=== PATIENT | female | born 1990 | race Caucasian/White ===

== ENCOUNTER 2025-04-13 10:48 | Outpatient (REF) | payer MEDICAID, SELFPAY ==
--- OUTSIDE RECORDS SUMMARY | 2025-04-13 11:33 | XMS_ITS ---
Author Organization [employer] [facility] Address [address] [facility] 7t [place] [address] Care Team Providers Care Senior Actuarial Analyst Name Role Phone Tania Fragoso MD Primary Care Provider [phone] Cindy Kim Unavailable [phone] Matthew Cevallos Unavailable C3 CM High Risk Maternity Status:Enrolled (Active) Start date:02/21/2025 Enrollment date:03/06/2025 Enrollment reason:ADT Feed Overview ADT HRM- Pt admitted to [facility] on 02/20/25. Case Team Name Relationship Phone Cindy Kim(Responsible Staff) Registered Nurse [phone] Continued Care and Services Coordination
[2025-04-13 12:25] LABS: MANUAL DIFF FLAG NO
[2025-04-13 12:28] LABS: Hematocrit 41.8 % (37.0-47.0); Hemoglobin 13.7 g/dl (12.0-16.0); Imm Gran Abs Auto 0.03 X10*3/uL (0.00-0.03); Imm Gran Pct Auto 0.5 % (0.0-0.4); Lymphocytes Absolute Auto 2.9 X10*3/uL (1.2-4.9); Mean Corpuscular HGB Conc 32.8 g/dl (31.0-35.0); Mean Corpuscular Hemoglobin 27.3 pg (27.0-33.0); Mean Corpuscular Volume 83.3 fL (80.0-98.0); NRBC Abs Auto 0.000 X10*3/uL (0.0-0.012); NRBC Pct Auto 0.0 /100WBC (0.0-0.2); Platelet Count 288 X10*3/uL (160-400); Red Blood Count 5.02 X10*6/uL (4.20-5.50); White Blood Count 6.7 X10*3/uL (4.8-10.8)
[2025-04-13 12:48] LABS: Alanine Aminotransferase 86 U/L (0-31); Albumin Level 4.7 g/dL (3.5-5.0); Alkaline Phosphatase 91 U/L (39-117); Anion Gap 11 (12-20); Aspartate Amino Transferase 37 U/L (5-31); Blood Urea Nitrogen 12 mg/dL (9-16); Calcium 9.5 mg/dL (8.4-10.2); Carbon Dioxide 25 mmol/L (22-29); Chloride 110 mmol/L (96-108); Estimated Glomerular Filt Rate > 60; Iron 142 mcg/dL (30-160); Percent Iron Saturation 54 % (15-50); Potassium 4.2 mmol/L (3.3-5.1); Sodium 142 mmol/L (135-145); Total Iron Binding Capacity 262 mcg/dL (228-428); Total Protein 7.3 g/dL (6.5-8.0); Unsaturated Iron Binding 120 ug/dL
[2025-04-13 13:04] LABS: Ferritin 95 ng/mL (10-122)
== END 2025-04-13 10:49 | disposition home or self-care (01) ==
LOC: HO.CHCLDS 10:48
PROVIDERS: Visit Provider Family Medicine
DX: Z39.2 Encounter for routine postpartum follow-up (principal); E66.3 Overweight
CPT/HCPCS: 36415; 80053; 82728; 83540; 84443; 85025

== ENCOUNTER 2025-07-28 11:49 | Outpatient (REF) | payer MEDICAID, SELFPAY ==
--- OUTSIDE RECORDS SUMMARY | 2025-07-28 13:24 | XMS_ITS ---
Author Organization [employer] Address [address] [facility] 7t [place] [address] Care Team Providers Care Sieve Repairer Name Role Phone Tania Fragoso MD Primary Care Provider [phone] Cindy Villasenor [phone] C3 CM High Risk Maternity Status:Enrolled (Active) Start date:02/21/2025 Enrollment date:03/06/2025 Enrollment reason:ADT Feed Overview ADT HRM- Pt admitted to [facility] on 02/20/25. Case Team Name Relationship Phone Cindy Villasenor(Responsible Staff) Registered Nurse [phone] Continued Care and Services Coordination
--- OUTSIDE RECORDS SUMMARY | 2025-07-28 13:25 | XMS_ITS | Clinical Summary ---
Author Organization [employer] Address [address] [facility] 7t [place] [address] Care Team Providers Care Biometrics Technician Name Role Phone Tania Fragoso MD Primary Care Provider [phone] Cindy Villasenor Unavailable [phone] Allergies No known active allergies Medications multivitamin () 27-0.8 MG tablet Take 1 tablet by mouth Once per day. 120 tablet 3 5 Active Diclofenac Sodium 1 % gelIndications: Cubital tunnel syndrome on right Apply 5 g topically 4 times daily. 200 g 5 Active Active Problems Problem Noted Date Diagnosed Date Annual physical exam 04/19/2025 Assessment & Plan (04/19/2025 8:31 AM EDT): 35 y.o. female here for annual physical examination Reviewed BMI and BP with patient. Nutritional recommendations: Recommended to decrease soda and sugary beverage consumption. Recommended at least 20 g per meal of protein to assist with satiety. Exercise recommendations: Recommended at least 150 min/week of moderate intensity exercise. screen done and reviewed Care Gaps reviewed IZ reviewed and discussed w/ patient Updated/reviewed PMH, Surghx, Family Hx & Social Hx Cubital tunnel syndrome on right 04/13/2025 care and examination 12/25/2023 Assessment & Plan (12/26/2023 2:55 AM EDT): The patient is recovering well with no significant issues. Prescribed progesterone-only pills (Mely or Micronol) due to . She was advised on the importance of taking the pill at the same time every day for effectiveness. Resolved Problems Problem Noted Date Diagnosed Date Resolved Date 15 weeks gestation of 05/23/2023 04/13/2025 Assessment & Plan (09/08/2024 3:09 PM EST): Hgb is WNL. Prescribing Prenatals. Relevant Medications Multivitamin () 27-0.8 MG Tablet Assessment & Plan (05/23/2023 11:19 AM EDT): at 10 weeks by LMP - start PNV - reportedly no adverse OB history - wants care at [facility], referral placed - no tobacco or alcohol use Encounters Date Type Department Care Team Description 07/10/2025 Patient Outreach [facility] [address] [place] [phone] Tania Fragoso MD Care Management (C3CM follow up call) 06/29/[address] [facility] [address] [place] [address] Tania Fragoso MD Cubital tunnel syndrome on right 06/07/2025 Telephone [facility] [address] [place] [phone] Tania Fragoso MD NERVE CONDUCTION TEST 06/02/2025 Patient Outreach [address] [address] Tania Fragoso MD Care Management (C3CM follow up call) 06/01/2025 11:30 AM EDT Office Visit [facility] [address] [place] [address] Tania Fragoso MD Cubital tunnel syndrome on right (Primary Dx) 06/01/2025 Travel 05/30/[address] [facility] [address] [place] [address] Tania Fragoso MD chart prep 05/18/[address] [facility] [address] [place] [address] Tania Fragoso MD Referral 05/03/2025 Patient Outreach [facility] [address] [place] [phone] Tania Fragoso MD Care Management (C3CM follow up call) 05/02/2025 Telephone [facility] [address] [place] [address] Tania Fragoso MD Durable Medical Equipment 04/27/2025 Patient Outreach [facility] [address] [place] [address] Tania Fragoso MD Care Coordination ([facility]/JULIA Bose-Follow up/Graduated) from Last 3 Months Immunizations Immunization Administration Dates Next Due Tdap 12/09/2023 Varicella 01/28/2024,12/09/2023 Social History Tobacco Use Types Packs/Day Years Used Date Smoking Tobacco: Never Smokeless Tobacco: Never Tobacco Cessation:Counseling Given: Not Answered Alcohol Use Standard Drinks/Week Comments Not Currently 0 (1 standard drink = 0.6 oz pur e alcohol) Depression Answer Date Recorded Patient Health Questionnaire-9 Score 0 04/13/2025 Patient Health Questionnaire-9 Score 0 04/13/2025 Last PHQ-9: Questionnaire Data Not on file 0 04/13/2025 Housing Stability Answer Date Recorded What is your housing situation today? I have nataliyaleslye darnell 02/21/[address] you li ve. Do you have problems with any of the following? None of the above 02/21/2025 Food Insecurity Answer Date Recorded Within the past 12 months, y ou worried that your food would run out before you got money to buy more: Never True 02/21/2025 Within the past 12 months,th e food you bought just didn't last and you didn't have enough money to get more: Never True Transportation Answer Date Recorded In the past 12 months, has l ack of transportation kept you from medical appts, meetings, work or from getting things needed for daily living? No 02/21/2025 Utilities Answer Date Recorded In the past 12 months, has t he electric, gas, oil or water company threatened to shut off services in your home? No 02/21/2025 Depression Answer Date Recorded Patient Health Questionnaire-2 Score 0 04/13/2025 Internet Access Answer Date Recorded Internet Access Q1 Yes 02/21/2025 Internet Access Q2 Not on file 02/21/2025 Comments No Sex and Gender Information Value Date Recorded Sex Assigned at Female 05/22/2023 2:39 PM EDT Legal Sex Female 2:37 PM EDT Gender Identity Female 05/22/2023 2:39 PM EDT Sexual Orientation Don't know 05/22/2023 2: 39 PM EDT Last Filed Vital Signs Vital Sign Reading Time Taken Comments Blood Pressure 117/70 06/01/2025 11:39 AM EDT Pulse 78 06/01/2025 11:39 AM EDT Temperature 36.9 C (98.5 F) 06/01/2025 11:39 AM EDT Respiratory Rate 20 06/01/2025 11:39 AM EDT Oxygen Saturation 98% 06/01/2025 11:39 AM EDT Inhaled Oxygen Concentration - - Weight 66.5 kg (146 lb 9.6 oz) 06/01/2025 11:39 AM EDT Height 157.5 cm (5' 2 ) 06/01/2025 11:39 AM EDT Body Mass Index 26.81 06/01/2025 11:39 AM EDT Plan of Treatment Health Maintenance Due Date Last Done Comments HIV Screening 1990 Family Planning (PISQ) 2005 HPV Vaccines (1 - 3-dose series) 2005 Hepatitis C Screening 2008 Hepatitis B Vaccines (1 of 3 - 19+ 3-dose series) 2009 COVID-19 Vaccine ( - 2023-2 5 season) 2025 Influenza Vaccine (#1) 2025 SDOH Screening 02/21/2026 02/21/2025 Alcohol/Substance Use Screening 04/13/2026 04/13/2025 Depression Screening 04/13/2026 04/13/2025, 03/06/2025 Disability Screening 04/13/2026 04/13/2025 Tobacco Screening 06/01/2026 06/01/2025 Cervical Cancer Screening 08/03/2027 HPV/Cotest 08/03/2027 Pap Smear 08/03/2027 08/03/2024 DTaP/Tdap/Td Vaccines (2 - T d or Tdap) 12/08/2033 12/09/2023 Zoster Vaccines (1 of 2) 2040 RSV Patients and Patients Aged 60 years or older (1 - 1-dose 75+ series) 2065 HIB Vaccines Aged Out No longer eligi ble based on patient's age to complete this topic Hepatitis A Vaccines Aged Out No long er eligible based on patient's age to complete this topic IPV Vaccines Aged Out No longer eligi ble based on patient's age to complete this topic Meningococcal B Vaccine Aged Out No l onger eligible based on patient's age to complete this topic Meningococcal Vaccine Aged Out No sunny rachel eligible based on patient's age to complete this topic Pneumococcal Vaccine: Pediatrics (0 to 5 Years) and At-Risk Patients (6 to 49) Years Aged Out No longer eligible b ased on patient's age to complete this topic RSV under 20 months Aged Out No longe r eligible based on patient's age to complete this topic Rotavirus Vaccines Aged Out No longer eligible based on patient's age to complete this topic Procedures Procedure Name Priority Date/Time Associated Diagnosis Comments PAP/HPV Routine 08/03/2024 12:00 AM EST from Last 3 Months or Most Recently Relevant to Health Maintenance Results * PAP/HPV (08/03/2024 12:00 AM EST) Pap Smear 1. NILM 1. NILM Historical Provider HEALTH MAINTENANCE Edited Result - Final from Last 3 Months or Most Recently Relevant to Health Maintenance Insurance # [address] [place] [address] [facility] C3 Care Teams Biometrics Technician Relationship Specialty Start Date End Date Tania Fragoso MD [address] [place] [address] [phone] PCP - General Family Medicine 12/25/23 Cindy Villasenor Registered Nurse 02/21/25
--- OUTSIDE RECORDS SUMMARY | 2025-07-28 13:25 | XMS_ITS | Encounter Summary ---
Author Organization [employer] Address [address] [facility] 7t [place] [address] Care Team Providers Care Skirt Panel Assembler Name Role Phone Tania Fragoso MD Primary Care Provider [phone] Cindy Villasenor Unavailable [phone] Reason for Visit * Reason Comments Med Refill Encounter Details Date Type Department Care Team ([facility] Contact Info) Description 06/29/2025 Refill [facility] [address] [place] [address] Tania Fragoso MD [address] [place] [address] Cubital tunnel syndrome on right Social History Tobacco Use Types Packs/Day Years Used Date Smoking Tobacco: Never Smokeless Tobacco: Never Alcohol Use Standard Drinks/Week Comments Not Currently 0 (1 standard drink = 0.6 oz pur e alcohol) Depression Answer Date Recorded Patient Health Questionnaire-9 Score 0 04/13/2025 Patient Health Questionnaire-9 Score 0 04/13/2025 Last PHQ-9: Questionnaire Data Not on file 0 04/13/2025 Housing Stability Answer Date Recorded What is your housing situation today? I have nataliya darnell 02/21/[address] you [...] Don't know 05/22/2023 2: 39 PM EDT documented as of this encounter Plan of Treatment Not on file documented as of this encounter Visit Diagnoses Diagnosis Cubital tunnel syndrome on right documented in this encounter Additional Health Concerns Assessment Noted Time PHQ-9 Depression Total Score: 0 04/13/20 10:49 AM EDT documented as of this encounter Care Teams Skirt Panel Assembler Relationship Specialty Start Date End Date Tania Fragoso MD [address] [place] [address] PCP - General Family Medicine 12/25/23 Cindy Villasenor Registered Nurse 02/21/25 documented as of this encounter
[2025-07-28 14:28] LABS: Alanine Aminotransferase 79 U/L (0-31); Albumin Level 4.9 g/dL (3.5-5.0); Alkaline Phosphatase 85 U/L (39-117); Aspartate Amino Transferase 37 U/L (5-31); Total Protein 7.6 g/dL (6.5-8.0)
== END 2025-07-28 11:50 | disposition home or self-care (01) ==
LOC: HO.CHCLDS 11:49
PROVIDERS: Visit Provider Family Medicine
DX: R74.01 Elevation of levels of liver transaminase levels (principal)
CPT/HCPCS: 36415; 80076

== ENCOUNTER 2025-08-16 09:11 | Outpatient (REF) | payer MEDICAID, SELFPAY ==
--- NOTE | 2025-08-16 09:14 | EMG_ITS ---
Chief complaint: Right worse than left hand numbness Reason for referral: Evaluate for Carpal Tunnel Syndrome or ulnar neuropathy Referred by: Ursula ODONNELL Procedure done: Bilateral upper extremity NCS/EMG Precautions and/or limitations: None Nerve Conduction Studies Anti Sensory Summary Table ?Stim Site NR Onset (ms) Norm Onset (ms) Peak (ms) Norm Peak (ms) O-P Amp (?V) Norm O-P Amp Site1 Site2 Delta-0 (ms) Dist (cm) Xander (m/s) Norm Xander (m/s) Left Median Anti Sensory (2nd Digit) Wrist ? 2.8 3.6 <3.6 18.6 >10 Wrist 2nd Digit 2.8 14.0 50 Right Median Anti Sensory (2nd Digit) Wrist ? 5.0 6.3 <3.6 12.1 >10 Wrist 2nd Digit 5.0 14.0 28 Right Radial Anti Sensory (Thumb) Forearm ? 1.6 2.2 <3.1 40.6 Forearm Thumb 1.6 0.0 Left Ulnar Anti Sensory (5th Digit) Wrist ? 2.1 2.9 <3.7 54.6 >15.0 Wrist 5th Digit 2.1 14.0 67 Right Ulnar Anti Sensory (5th Digit) Wrist ? 2.2 2.7 <3.7 47.9 >15.0 Wrist 5th Digit 2.2 14.0 64 Motor Summary Table ?Stim Site NR Onset (ms) Norm Onset (ms) O-P Amp (mV) Norm O-P Amp iAmp (mV) Amp (1st) (%) Site1 Site2 Delta-0 (ms) Dist (cm) Xander (m/s) Norm Xander (m/s) Left Median Motor (Abd Poll Brev) Wrist ? 3.4 <3.9 15.6 >4.5 17.5 100.0 Elbow Wrist 3.3 18.5 56 >45 Elbow ? 6.7 13.8 15.6 88.5 Right Median Motor (Abd Poll Brev) Wrist ? 5.9 <3.9 11.8 >4.5 13.8 100.0 Elbow Wrist 3.4 18.0 53 >45 Elbow ? 9.3 11.1 13.0 94.1 Left Ulnar Motor (Abd Dig Minimi) Wrist ? 2.7 <3.0 11.0 >5 12.9 100.0 B Elbow Wrist 3.0 18.0 60 >45 B Elbow ? 5.7 11.2 13.2 101.8 A Elbow B Elbow 1.6 10.0 63 >45 A Elbow ? 7.3 10.8 12.8 98.2 Right Ulnar Motor (Abd Dig Minimi) Wrist ? 2.6 <3.0 11.4 >5 13.2 100.0 B Elbow Wrist 3.1 17.5 56 >45 B Elbow ? 5.7 11.5 13.2 100.9 A Elbow B Elbow 1.6 10.0 63 >45 A Elbow ? 7.3 11.3 13.0 99.1 Comparison Summary Table ?Stim Site NR Peak (ms) Norm Peak (ms) P-T Amp (?V) Site1 Site2 Delta-P (ms) Norm Delta (ms) Left Median/Radial Dig I Comparison (Digit 1 - 10cm) Median ? 3.0 <2.9 82.7 Median Radial 0.5 Radial ? 2.5 <2.8 17.6 EMG ?Side Muscle Nerve Root Ins Act Fibs Psw Amp Dur Poly Recrt Int Pat Comment Right 1stDorInt Ulnar C8-T1 Nml Nml Nml Nml Nml 0 Nml Complete Right FlexCarRad Median C6-7 Nml Nml Nml Nml Nml 0 Nml Complete Right Biceps Musculocut C5-6 Nml Nml Nml Nml Nml 0 Nml Complete Right Triceps Radial C6-7-8 Nml Nml Nml Nml Nml 0 Nml Complete Right Deltoid Axillary C5-6 Nml Nml Nml Nml Nml 0 Nml Complete Left 1stDorInt Ulnar C8-T1 Nml Nml Nml Nml Nml 0 Nml Complete Left FlexCarRad Median C6-7 Nml Nml Nml Nml Nml 0 Nml Complete Left Biceps Musculocut C5-6 Nml Nml Nml Nml Nml 0 Nml Complete Left Triceps Radial C6-7-8 Nml Nml Nml Nml Nml 0 Nml Complete Left Deltoid Axillary C5-6 Nml Nml Nml Nml Nml 0 Nml Complete The limb temperature was monitored continuously and remained between 32-36 degrees C during the performance of the NCS. FINDINGS: Right median motor nerve showed prolonged distal latency, normal amplitude and normal conduction velocity. Right median sensory nerve showed prolonged peak latency. All other nerves tested were within normal. Concentric needle EMG was performed in selected muscles of the upper extremity. Study did not reveal signs of electric abnormalities as shown in the table above. IMPRESSION: 1. This is an abnormal study. 2. There is electrodiagnostic evidence for right moderate-severe median neuropathy at the wrist, consistent with carpal tunnel syndrome. 3. There is no electrodiagnostic evidence for ulnar neuropathy, brachial plexopathy, or cervical radiculopathy. 4. No signs of left median neuropathy. Thank you for your kind referral. Daxa Major MD, TRISTIN Board Certified, [employer] Board of Physical Medicine and Rehabilitation (ABPMR) Board Certified, [employer] Board of Electrodiagnostic Medicine (ABEM) CODIN [phone] x 2 extremities MTDD
--- OUTSIDE RECORDS SUMMARY | 2025-08-16 17:05 | XMS_ITS ---
Author Organization [employer] Address [address] [facility] 7t [place] [address] Care Team Providers Care Circulation Sales Representative Name Role Phone Tania Fragoso MD Primary Care Provider [phone] Cindy Villasenor [phone] [phone] CM High Risk Maternity Status:Enrolled (Active) Start date:02/21/2025 Enrollment date:03/06/2025 Enrollment reason:ADT Feed Overview ADT HRM- Pt admitted to [facility] on 02/20/25. Case Team Name Relationship Phone Cindy Villasenor(Responsible Staff) Registered Nurse [phone] Continued Care and Services Coordination
--- OUTSIDE RECORDS SUMMARY | 2025-08-16 17:06 | XMS_ITS | Clinical Summary ---
Author Organization [email or web address] Address [address] [facility] 7t [place] [address] Care Team Providers Care Tube Cutter Operator Name Role Phone Tania Fragoso MD Primary Care Provider [phone] Cindy Villasenor Unavailable [phone] Allergies No known active allergies Medications [...] adverse OB history - wants care at [facility], referral placed - no tobacco or alcohol use Encounters Date Type Department Care Team Description 08/07/2025 Patient Outreach [facility] [address] [place] [phone] Tania Fragoso MD Care Management (C3CM follow up call) 07/10/2025 Patient Outreach [facility] [address] [place] [phone] Tania Fragoso MD Care Management (C3CM follow up call) 06/29/2025 Refill [facility] [address] [place], [place] [phone] Tania Fragoso MD Cubital tunnel syndrome on right 06/07/2025 Telephone [place] [facility] [employer] [facility] [address] [place] [address] Tania Fragoso MD NERVE CONDUCTION TEST 06/02/2025 Patient Outreach [facility] [address] [place] [phone] Tania Fragoso MD Care Management (C3CM follow up call) 06/01/2025 11:30 AM EDT Office Visit [facility] [address] [place] [address] Tania Fragoso MD Cubital tunnel syndrome on right (Primary Dx) 06/01/2025 Travel 05/30/2025 Telephone [facility] [address] [place] [address] Tania Fragoso MD chart prep 05/18/2025 Telephone [facility] [address] [place] [address] Tania Fragoso MD Referral from Last 3 Months Immunizations Immunization Administration [...] 3-dose series) 2009 COVID-19 Vaccine ( - 2024-2 6 season) 2025 Influenza Vaccine (#1) 2025 SDOH [...] Procedure Name Priority Date/Time Associated Diagnosis Comments HEPATIC FUNCTION PANEL Routine 07/28/2025 11:50 AM EDT Transaminitis PAP/HPV Routine 08/03/2024 12:00 AM EST from Last 3 Months or Most Recently Relevant to Health Maintenance Results * (ABNORMAL) Hepatic Function Panel (07/28/2025 11:50 AM EDT) Bilirubin, Total 0.5 0.0 - 1.0 mg/dL [facility] Bilirubin, Direct 0.2 0.0 - 0.5 mg/dL [facility] Aspartate Amino Transferase 37(H) 5 - 31 U/L [facility] Alanine Aminotransferase 79(H) 0 - 31 U/L [facility] Total Protein 7.6 6.5 - 8.0 g/dL [facility] Albumin Level 4.9 3.5 - 5.0 g/dL [facility] Alkaline Phosphatase 85 39 - 117 U/L [facility] Blood Venous blood specimen / Unknown 07/28/2025 11:50 AM EDT 07/28/2025 2:00 PM EDT us Tania Fragoos MD LAB BLOOD ORDERABLES Final Re sult [facility] [address] [place] [phone] * PAP/HPV (08/03/2024 12:00 AM EST) Pap Smear 1. NILM 1. NILM us Historical Provider HEALTH MAINTENANCE Edited Result - Final from Last 3 Months or Most Recently Relevant to Health Maintenance Insurance [employer] [facility] [facility] C3 Care Teams Tube Cutter Operator Relationship Specialty Start Date End Date Tania Fragoso MD [address] [place] [address] PCP - General Family Medicine 12/25/23 Cindy Villasenor Registered Nurse 02/21/25
--- OUTSIDE RECORDS SUMMARY | 2025-08-16 17:06 | XMS_ITS | Encounter Summary ---
Author Organization [employer] Address [address] [facility] 7t [place] [address] Care Team Providers Care Nutrition Associate Name Role Phone Tania Fragoso MD Primary Care Provider [phone] Cindy Villasenor Unavailable [phone] Reason for Visit * Reason Comments Med Refill Encounter Details Date Type Department Care Team ([facility] Contact Info) Description 06/29/2025 Refill [facility] [address] [place] [address] Tania Fragoso MD [address] [place] [address] Cubital tunnel syndrome on right Social History [...] documented as of this encounter Care Teams Nutrition Associate Relationship Specialty Start Date End Date Tania Fragoso MD [address] [place] [address] PCP - General Family Medicine 12/25/23 Cindy Villasenor Registered Nurse 02/21/25 documented as of this encounter
== END 2025-08-16 09:12 | disposition home or self-care (01) ==
LOC: HO.NEURO 09:11
PROVIDERS: PCP Family Medicine; Visit Provider Physician Assistant
DX: R20.2 Paresthesia of skin (principal); R20.0 Anesthesia of skin
CPT/HCPCS: 95886; 95911

== ENCOUNTER → 2025-08-16 09:14 | Outpatient (BNV) | payer MEDICAID, SELFPAY | PROVIDERS: PCP Family Medicine; Visit Provider Physical Medicine & Rehabilitation | DX: G56.01 Carpal tunnel syndrome, right upper limb (principal); R20.0 Anesthesia of skin; R20.2 Paresthesia of skin | CPT/HCPCS: 95886; 95911 ==